=== PATIENT | female | born 1955 | race Caucasian/White ===

== ENCOUNTER → 2021-07-27 | Day surgery (SDC) | payer OTHER | END | disposition home or self-care (01) | LOC: JRADIR 09:28 | PROVIDERS: ATTEND Internal Medicine Endocrinology, Diabetes & Metabolism | PROC: 0G9K3ZX Drainage of Thyroid Gland, Percutaneous Approach, Diagnostic (ICD-10-PCS; principal; 2021-07-27) | DX: E04.1 Nontoxic single thyroid nodule (principal) | CPT/HCPCS: 10005; 76942; 88305-TC ==

== ENCOUNTER 2023-07-02 10:27 | Day surgery (SDC) | payer OTHER ==
[2023-06-28 10:35] VITALS: BMI 22.6
[2023-07-02 13:02] VITALS: RESP 17; TEMP 97
[2023-07-02 13:06] VITALS: BP 110/62; PULSE 67
== END 2023-07-02 12:15 | disposition home or self-care (01) ==
LOC: FASU-ENDO 10:27
PROVIDERS: ATTEND Internal Medicine Gastroenterology
PROC: 0DJD8ZZ Inspection of Lower Intestinal Tract, Via Natural or Artificial Opening Endoscopic (ICD-10-PCS; principal; 2023-07-02 11:33)
DX: Z12.11 Encounter for screening for malignant neoplasm of colon (principal); Z86.010 Personal history of colon polyps